=== PATIENT | female | born 1965 | race Caucasian/White ===

== ENCOUNTER → 2019-03-29 13:16 | Outpatient (BNVA) | payer OTHER, SELFPAY | PROVIDERS: Family Provider Family Medicine; Visit Provider Otolaryngology | DX: H93.11 Tinnitus, right ear (principal); H91.93 Unspecified hearing loss, bilateral; R26.89 Other abnormalities of gait and mobility | CPT/HCPCS: 99203; 99214 ==

== ENCOUNTER 2019-05-31 07:35 | Outpatient (CLI) | payer OTHER, SELFPAY ==
--- NOTE | 2019-05-31 19:32 | ONC FU_ITS ---
Dr. Cassidy Patient Follow-Up Note Patient: Rose Mary Freeman Unit #: [id number]: 1965 Dicatated By: Tio Cassidy M.D.Date of Visit:May 31, 2019 Onc Med Follow-up/Prog Note Chief Complaint: Breast cancer. History of Present Illness: This is a 53 year-old woman with multifocal grade 1 invasive ductal carcinoma of the right breast, stage IA (pT1a, pN0, M0), ER/OH positive and HER-2/arianne negative. She has been in good general health. She had initially presented with a palpable lump in her right breast, which appeared to be a simple cyst by imaging. However, excisional biopsy of the right breast on 09/09/2017 did reveal grade 1 invasive ductal carcinoma. The breast prognostic profile showed ER positive at 85% and OH positive at 100%. HER-2/arianne was 2+ by IHC, but negative by FISH. We Ki-67 was favorable at 10%. There was associated DCIS, and there was a positive margin. She then underwent reexcision lumpectomy with axillary sentinel lymph node biopsy on 10/22/2017, which again showed a close margin with DCIS. There was no involvement in 1 sentinel lymph node. With those findings she proceeded with right total mastectomy and prophylactic left mastectomy and bilateral breast reconstruction on 11/23/2017. Pathology on the mastectomy showed at least for foci of residual invasive ductal carcinoma, grade 1, measuring up to 3.5 mm in maximum diameter. 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 There was no malignancy identified in the left breast. She began adjuvant hormonal therapy with tamoxifen in December 2017, as she was premenopausal at that time. During subsequent follow-up she had increased night sweating and hot flashes, and she completely stopped menstruating. She had some depression, which improved with venlafaxine, and she also reported weight gain. Overall, though, she had tolerated the tamoxifen well. I had seen her initially in November 2018. At that point she appeared stable clinically. She continued adjuvant hormonal therapy with tamoxifen 20 mg daily. She is seen for a follow-up visit by Telehealth. She has been feeling pretty good generally. She says her energy has been pretty good. She has normal activity. ECOG score is 0. Her appetite is good. She has gained weight. She is not having fever or night sweats. She has some hot flashes, but not as much. Her main complaint is that she has been having more joint pain, particularly in her knees but also sometimes in her wrists and fingers. She also has been having more leg cramps. She has some aching in her right arm. She does not complain of shortness of breath, cough, or chest pain. She has some heartburn occasionally. She has no other GI or complaints. She has occasional headaches. She does not complain of dizziness. She sometimes has a little bit of numbness/tingling. Medications: LORazepam 1 - 2 Tablet (of 1 mg) Oral PRN, Tamoxifen Citrate 1 Tablet (of 20 mg) Oral daily, Venlafaxine HCl ER 1 Capsule (of 75 mg) Capsule SR 24 HR Oral daily Allergies: Levaquin and Penicillin. Review of Systems: Constitutional - Her energy level is pretty good. She has normal activity. Her appetite is good. She has gained weight. No fever or night sweats. She still has occasional hot flashes but they are improved. ECOG score is 0, ENMT - No sinus congestion/drainage. No mouth sores. No sore throat or difficulty swallowing, Hematologic/Lymphatic - No abnormal bruising or bleeding, Respiratory - No shortness of breath. No cough. No pleuritic pain or hemoptysis, Cardiovascular - No angina pain. No palpitations, Gastrointestinal - No nausea or vomiting. She has occasional heartburn. No diarrhea or constipation. No blood in the stool or black stools, Genitourinary (F) - No dysuria or hematuria. No urinary frequency. No urgency or incontinence, Musculoskeletal - She is having joint pain in her knees, wrists, and fingers. She is having cramping in her legs. She has aching in her right arm on a daily basis, Integumentary - No skin complications, Neurologic - She has occasional headaches. No dizziness. She is having intermittent numbness and tingling in her hands and feet, Psychiatric - Her anxiety/depression has been adequately managed with medication. No insomnia. Physical Examination: Constitutional - She looks good generally, Extremities - There is no swelling in the right arm or other evidence of lymphedema. Impression: 1. Patient with multifocal grade 1 invasive ductal carcinoma of the right breast, stage IA (pT1a, pN0, M0), ER/OH positive and HER-2/arianne negative. She had negative genetic screening. 2. Her treatment included excisional biopsy on 09/09/2017 followed by reexcision lumpectomy/axillary sentinel lymph node biopsy on 10/22/2017 followed by bilateral mastectomy/reconstruction on 11/23/2017. 3. She began adjuvant hormonal therapy with tamoxifen 20 mg daily in December 2017. 4. During follow-up she developed anxiety/depression, that has been adequately managed with venlafaxine. Overall, she has been doing well clinically, though she has started having more symptoms which I suspect are tamoxifen related, mainly joint pain and muscle cramping. Thus far there has been no evidence of recurrence of the breast cancer. Plan: For now she will continue adjuvant hormonal therapy with tamoxifen 20 mg daily. I would like to see her continue treatment through December 2019, at which point she will have at least completed 2 years of treatment. However, as she has very low risk disease, I will have no objection to her stopping the tamoxifen sooner if her joint pain or other symptoms continue to worsen. I will tentatively plan a follow-up visit in 6 months. In the meantime, she will have laboratory studies when she sees Dr. Clark for her yearly follow-up with him. Signed By: Tio Cassidy M.D. <<Signature on File>>
== END 2019-05-31 07:36 | disposition home or self-care (01) ==
LOC: ONCMED 07:35
PROVIDERS: PCP Family Medicine; Visit Provider Internal Medicine Medical Oncology
DX: C50.811 Malignant neoplasm of overlapping sites of right female breast (principal); Z17.0 Estrogen receptor positive status [ER+]; F41.8 Other specified anxiety disorders; Z79.810 Long term (current) use of selective estrogen receptor modulators (SERMs); Z79.899 Other long term (current) drug therapy; Z90.13 Acquired absence of bilateral breasts and nipples
CPT/HCPCS: 99214

== ENCOUNTER 2019-12-21 14:41 | Outpatient (CLI) | payer OTHER, SELFPAY ==
--- NOTE | 2019-12-24 12:48 | ONC FU_ITS ---
Dr. Cassidy Patient Follow-Up Note Patient: Rose Mary Freeman Unit #: [id number]: 1965 Dicatated By: Tio Cassidy M.D.Date of Visit:Dec 21, 2019 Onc Med Follow-up/Prog Note Chief Complaint: Breast cancer. History of Present Illness: This is a 54 year-old woman with multifocal grade 1 invasive ductal carcinoma of the right breast, stage IA (pT1a, pN0, M0), ER/FL positive and HER-2/arianne negative. She has been in good general health. She had initially presented with a palpable lump in her right breast, which appeared to be a simple cyst by imaging. However, excisional biopsy of the right breast on 09/09/2017 did reveal grade 1 invasive ductal carcinoma. The breast prognostic profile showed ER positive at 85% and FL positive at 100%. HER-2/arianne was 2+ by IHC, but negative by FISH. We Ki-67 was favorable at 10%. There was associated DCIS, and there was a positive margin. She then underwent reexcision lumpectomy with axillary sentinel lymph node biopsy on 10/22/2017, which again showed a close margin with DCIS. There was no involvement in 1 sentinel lymph node. With those findings she proceeded with right total mastectomy and prophylactic left mastectomy and bilateral breast reconstruction on 11/23/2017. Pathology on the mastectomy showed at least for foci of residual invasive ductal carcinoma, grade 1, measuring up to 3.5 mm in maximum diameter. 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 There was no malignancy identified in the left breast. She began adjuvant hormonal therapy with tamoxifen in December 2017, as she was premenopausal at that time. During subsequent follow-up she had increased night sweating and hot flashes, and she completely stopped menstruating. She had some depression, which improved with venlafaxine, and she also reported weight gain. Overall, though, she had tolerated the tamoxifen well. I had seen her initially in November 2018. At that point she appeared stable clinically. She continued adjuvant hormonal therapy with tamoxifen 20 mg daily. As of 09/22/2019 she had stopped the tamoxifen due to worsening musculoskeletal pain. She indicates that the pain really did not improve significantly off tamoxifen, so she then tapered off the venlafaxine. She says her joints are a little better now, though she complains that her knees are still stiff and inflamed. She says that ibuprofen does help with that. She complains that her energy is down a little, but she is still working. ECOG score is 0. She has good appetite. She has not had fever or night sweats. She still has some hot flashes, but less since she stopped tamoxifen. She reports having a little bit of lingering, nonproductive cough. She does not complain of shortness of breath or chest pain. She has no GI or complaints. She says that today she has had constant pain going down her right arm, but prior to this it had been okay. She has been having lots of headaches. She sometimes has numbness in her hands. She says she felt a little rough coming off the venlafaxine, that seems to be leveling off now. Medications: LORazepam 1 - 2 Tablet (of 1 mg) Oral PRN Allergies: Levaquin and Penicillin. Review of Systems: Constitutional - Her energy is down a little, but she is working. Appetite is good and weight is stable. No fever or night sweats. She still has some hot flashes, but less since she stopped tamoxifen. ECOG score is 0, ENMT - No sinus congestion/drainage. No mouth sores. No sore throat or difficulty swallowing, Hematologic/Lymphatic - No abnormal bruising or bleeding, Respiratory - No shortness of breath. No cough. No pleuritic pain or hemoptysis, Cardiovascular - No angina pain. No palpitations, Gastrointestinal - No nausea or vomiting. She occasionally has heartburn. No diarrhea or constipation. No blood in the stool or black stools, Genitourinary (F) - No dysuria or hematuria. No urinary frequency. No urgency or incontinence, Musculoskeletal - She continues to have joint pain. It did not improve significantly after she stopped tamoxifen. She had subsequently tapered off venlafaxine, and since then it has improved somewhat. She still complains that her knees are stiff and inflamed, but ibuprofen does help with that, Integumentary - No skin rash, Neurologic - She has been having a lot of headaches. No dizziness. No numbness or tingling. No other focal neurologic symptoms, Psychiatric - She felt a little rough for about 3 weeks when she was coming off the Effexor, but it is leveling off now. No insomnia. Vital Signs: Performed on Dec 21, 2019 14:52 Height - 64.00 in Weight - 239.8 lbs (HIGH) BSA - 2.11 sq.m BMI - 41.16 (HIGH) Temperature - 97.7 F (LOW) Pulse - 75 /min Respiration - 20 /min BP - 134/81 mm(hg) O2 Sat - 96 % Pain - 6 Physical Examination: Constitutional - She looks good generally, Eyes - Sclerae nonicteric. Conjunctivae clear, ENMT - No lesions noted in the oral cavity, Hematologic/Lymphatic - No cervical, clavicular, or axillary adenopathy, Respiratory - Lungs are clear with good air movement bilaterally, Cardiovascular - Heart rhythm is regular. There is no murmur, gallop, or rub noted, Abdomen - Soft. Liver and spleen are not enlarged. There is no abdominal mass or ascites noted and there is no inguinal adenopathy, Extremities - No edema, Neurologic - No focal neurologic deficits noted. Impression: 1. Patient with multifocal grade 1 invasive ductal carcinoma of the right breast, stage IA (pT1a, pN0, M0), ER/FL positive and HER-2/arianne negative. She had negative genetic screening. 2. Her treatment included excisional biopsy on 09/09/2017 followed by reexcision lumpectomy/axillary sentinel lymph node biopsy on 10/22/2017 followed by bilateral mastectomy/reconstruction on 11/23/2017. 3. She began adjuvant hormonal therapy with tamoxifen 20 mg daily in December 2017. 4. During follow-up she developed anxiety/depression, that has been adequately managed with venlafaxine. As of 09/22/2019 she had stopped the tamoxifen due to worsening joint pain. The pain did not really improve significantly. More recently, she had tapered off venlafaxine, and that does seem to have helped somewhat, though she continues to complain that her knees are stiff and inflamed. Overall, she does seem to be feeling better now. Thus far there has been no evidence of recurrence of the breast cancer. Plan: Although her disease was multifocal, she had very small primary tumor, and with stage IA disease her risk of recurrence should be very low, even without treatment. Nonetheless, if she is able, it would be preferable for her to complete 5 years of adjuvant hormonal therapy. As such, I will have her start meloxicam 7.5 mg daily for the joint pain and I will see her back in 1 month. If her joint pain is adequately managed, I will have her try starting back on the tamoxifen. The other option would be to try an aromatase inhibitor, but I think it is very unlikely that she would tolerate it. Signed By: Tio Cassidy M.D. <<Signature on File>>
== END 2019-12-21 14:42 | disposition home or self-care (01) ==
LOC: ONCMED 14:45
PROVIDERS: PCP Family Medicine; Visit Provider Internal Medicine Medical Oncology
DX: C50.811 Malignant neoplasm of overlapping sites of right female breast (principal); Z17.0 Estrogen receptor positive status [ER+]; F41.8 Other specified anxiety disorders; Z90.13 Acquired absence of bilateral breasts and nipples; Z92.23 Personal history of estrogen therapy
CPT/HCPCS: 99214

== ENCOUNTER 2020-02-01 08:20 | Outpatient (CLI) | payer OTHER, SELFPAY ==
--- NOTE | 2020-02-01 12:15 | ONC FU_ITS ---
Dr. Cassidy Patient Follow-Up Note Patient: Rose Mary Freeman Unit #: [id number]: 1965 Dicatated By: Tio Cassidy M.D.Date of Visit:Feb 01, 2020 Onc Med Follow-up/Prog Note Chief Complaint: Breast cancer. History of Present Illness: This is a 54 year-old woman with multifocal grade 1 invasive ductal carcinoma of the right breast, stage IA (pT1a, pN0, M0), ER/OH positive and HER-2/arianne negative. She has been in good general health. She had initially presented with a palpable lump in her right breast, which appeared to be a simple cyst by imaging. However, excisional biopsy of the right breast on 09/09/2017 did reveal grade 1 invasive ductal carcinoma. The breast prognostic profile showed ER positive at 85% and OH positive at 100%. HER-2/arianne was 2+ by IHC, but negative by FISH. We Ki-67 was favorable at 10%. There was associated DCIS, and there was a positive margin. She then underwent reexcision lumpectomy with axillary sentinel lymph node biopsy on 10/22/2017, which again showed a close margin with DCIS. There was no involvement in 1 sentinel lymph node. With those findings she proceeded with right total mastectomy and prophylactic left mastectomy and bilateral breast reconstruction on 11/23/2017. Pathology on the mastectomy showed at least for foci of residual invasive ductal carcinoma, grade 1, measuring up to 3.5 mm in maximum diameter. 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 There was no malignancy identified in the left breast. She began adjuvant hormonal therapy with tamoxifen in December 2017, as she was premenopausal at that time. During subsequent follow-up she had increased night sweating and hot flashes, and she completely stopped menstruating. She had some depression, which improved with venlafaxine, and she also reported weight gain. Overall, though, she had tolerated the tamoxifen well. I had seen her initially in November 2018. At that point she appeared stable clinically. She continued adjuvant hormonal therapy with tamoxifen 20 mg daily. As of 09/22/2019 she had stopped the tamoxifen due to worsening musculoskeletal pain, and she had subsequently stopped venlafaxine. At her follow-up visit on 12/21/2019 she indicated that the pain had not improved significantly. She had noted improvement in her hot flashes. We discussed the possibility of restarting the tamoxifen after a trial of therapy with meloxicam. She is seen for a scheduled follow-up visit. Thus far she has opted not to restart the tamoxifen. She did try the meloxicam for a short time, but without significant improvement in her joint pain. The most significant had been in her knees and wrists. Recently she has had significant pain in her left shoulder, diagnosed as an impingement. She has noticed a little improvement taking naproxen twice a day. She says the hot flashes and sweating have completely stopped now. She still has had no menstrual period since she first started the tamoxifen. Medications: LORazepam 1 - 2 Tablet (of 1 mg) Oral PRN Allergies: Levaquin and Penicillin. Vital Signs: Performed on Feb 01, 2020 08:25 Height - 64.00 in Weight - 236.4 lbs (LOW) BSA - 2.10 sq.m BMI - 40.58 (HIGH) Temperature - 98.6 F Pulse - 71 /min Respiration - 18 /min BP - 143/74 mm(hg) (HIGH) O2 Sat - 96 % Pain - 0 Physical Examination: Constitutional - She looks good generally, Breasts - There is a small erythematous lesion in the upper right chest wall with a tiny palpable nodule within the underlying dermis. The appearance is not suspicious for recurrent breast cancer. Impression: 1. Patient with multifocal grade 1 invasive ductal carcinoma of the right breast, stage IA (pT1a, pN0, M0), ER/OH positive and HER-2/arianne negative. She had negative genetic screening. 2. Her treatment included excisional biopsy on 09/09/2017 followed by reexcision lumpectomy/axillary sentinel lymph node biopsy on 10/22/2017 followed by bilateral mastectomy/reconstruction on 11/23/2017. 3. She began adjuvant hormonal therapy with tamoxifen 20 mg daily in December 2017. 4. During follow-up she developed anxiety/depression, but that was adequately managed with venlafaxine. As of 09/22/2019 she had stopped the tamoxifen due to worsening joint pain and she had subsequently stopped venlafaxine. Since then her joint pain has persisted and thus far she has not attempted to restart the tamoxifen. Plan: She is going to try starting the tamoxifen again, but she is going to wait until February. In the meantime, she is going to continue taking chondroitin sulfate/glucosamine regularly and I suggested that she may also want to try adding turmeric. I will tentatively plan a follow-up visit in 6 months. Signed By: Tio Cassidy M.D. <<Signature on File>>
== END 2020-02-01 08:21 | disposition home or self-care (01) ==
LOC: ONCMED 08:22
PROVIDERS: PCP Family Medicine; Visit Provider Internal Medicine Medical Oncology
DX: C50.811 Malignant neoplasm of overlapping sites of right female breast (principal); M25.50 Pain in unspecified joint; F41.8 Other specified anxiety disorders; Z17.0 Estrogen receptor positive status [ER+]; Z90.13 Acquired absence of bilateral breasts and nipples; Z92.23 Personal history of estrogen therapy
CPT/HCPCS: G0463

== ENCOUNTER 2020-04-29 06:49 | Outpatient (RCR) | payer OTHER, SELFPAY | END 2020-05-22 23:59 | disposition home or self-care (01) | LOC: SPT 06:49 | PROVIDERS: PCP Family Medicine; Referring Provider Emergency Medicine; Visit Provider Emergency Medicine | DX: M75.02 Adhesive capsulitis of left shoulder (principal) | CPT/HCPCS: 97110; 97161 ==

== ENCOUNTER 2020-08-28 14:51 | Outpatient (CLI) | payer OTHER, SELFPAY ==
--- NOTE | 2020-08-29 07:30 | ONC FU_ITS ---
Dr. Cassidy Patient Follow-Up Note Patient: Rose Mary Freeman Unit #: [id number]: 1965 Dicatated By: Tio Cassidy M.D.Date of Visit:Aug 28, 2020 Onc Med Follow-up/Prog Note Chief Complaint: Breast cancer. History of Present Illness: This is a 54 year-old woman with multifocal grade 1 invasive ductal carcinoma of the right breast, stage IA (pT1a, pN0, M0), ER/SC positive and HER-2/arianne negative. She has been in good general health. She had initially presented with a palpable lump in her right breast, which appeared to be a simple cyst by imaging. However, excisional biopsy of the right breast on 09/09/2017 did reveal grade 1 invasive ductal carcinoma. The breast prognostic profile showed ER positive at 85% and SC positive at 100%. HER-2/arianne was 2+ by IHC, but negative by FISH. We Ki-67 was favorable at 10%. There was associated DCIS, and there was a positive margin. She then underwent reexcision lumpectomy with axillary sentinel lymph node biopsy on 10/22/2017, which again showed a close margin with DCIS. There was no involvement in 1 sentinel lymph node. With those findings she proceeded with right total mastectomy and prophylactic left mastectomy and bilateral breast reconstruction on 11/23/2017. Pathology on the mastectomy showed at least for foci of residual invasive ductal carcinoma, grade 1, measuring up to 3.5 mm in maximum diameter. 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 There was no malignancy identified in the left breast. She began adjuvant hormonal therapy with tamoxifen in December 2017, as she was premenopausal at that time. During subsequent follow-up she had increased night sweating and hot flashes, and she completely stopped menstruating. She had some depression, which improved with venlafaxine, and she also reported weight gain. Overall, though, she had tolerated the tamoxifen with acceptable toxicity. I had seen her initially in November 2018. At that point she appeared stable clinically. She continued adjuvant hormonal therapy with tamoxifen 20 mg daily. As of 09/22/2019 she had stopped the tamoxifen due to worsening musculoskeletal pain, and she had subsequently stopped venlafaxine. At her follow-up visit on 12/21/2019 she indicated that the pain had not improved significantly. She had noted improvement in her hot flashes. As of February 2020 she had restarted the tamoxifen at 20 mg daily. She initially felt okay on it, but after 3 months she did opt to restart the venlafaxine due to worsening depression. She was seen for a scheduled visit. She continues to have pretty severe hot flashes on the tamoxifen, but her depression has improved since she restarted the venlafaxine. Her energy is fair. She has normal activity. ECOG score is 0. Appetite is good. She has not had fever. She has a little bit of sinus drainage. She also reports that she intermittently has water dripping from her left IN left nostril. She has not had sore mouth or throat. She has no shortness of breath, cough, or chest pain. She does not complain of nausea. She does have lots and lots of heartburn, but she has been able to manage it adequately with ranitidine. Bowel and bladder function have been okay. She does have some joint pain, for which she has been taking chondroitin sulfate/glucosamine. She also does take the meloxicam, though not on a consistent basis. She reports having lots of muscle cramps in her legs and feet. She had been having a lot of headaches, but those have improved after Botox injections. She occasionally has a little bit of numbness/tingling in her hands or feet. Medications: LORazepam 1 - 2 Tablet (of 1 mg) Oral PRN, Tamoxifen Citrate 1 Tablet (of 20 mg) Oral daily, Venlafaxine HCl ER 1 Capsule (of 75 mg) Capsule SR 24 HR Oral daily Allergies: Levaquin and Penicillin. Vital Signs: Performed on Aug 28, 2020 15:19 Height - 64.00 in Weight - 241.8 lbs (HIGH) BSA - 2.12 sq.m BMI - 41.51 (HIGH) Temperature - 97.0 F (LOW) Pulse - 73 /min Respiration - 18 /min BP - 124/81 mm(hg) O2 Sat - 95 % (LOW) Pain - 0 Fatigue - 0 Physical Examination: Constitutional - She looks good generally, Eyes - Sclerae nonicteric. Conjunctivae clear, ENMT - No lesions noted in the oral cavity, Hematologic/Lymphatic - No cervical or clavicular adenopathy, Respiratory - Lungs are clear with good air movement bilaterally, Cardiovascular - Heart rhythm is regular. There is no murmur, gallop, or rub noted, Breasts - On the superior aspect of the right chest wall/breast reconstruction there is a small, raised, erythematous skin lesion. It has a slightly cystic appearance, not typical for locally recurrent breast cancer. There are no other chest wall lesions noted. There is no axillary adenopathy, Abdomen - Soft. Liver and spleen are not enlarged. There is no abdominal mass or ascites noted and there is no inguinal adenopathy, Extremities - Slight edema, Neurologic - No focal neurologic deficits noted. Problem List: 1. Multifocal grade 1 invasive ductal carcinoma of the right breast, stage IA (pT1a, pN0, M0), ER/SC positive and HER-2/arianne negative. She had negative genetic screening. 2. During follow-up she developed significant musculoskeletal pain. It appears to be most consistent with degenerative arthritis. 3. During follow-up she aso developed anxiety/depression. Problems Addressed with this Encounter and Plan: 1. Patient with multifocal grade 1 invasive ductal carcinoma of the right breast, stage IA (pT1a, pN0, M0), ER/SC positive and HER-2/arianne negative. She had negative genetic screening. Her treatment included excisional biopsy on 09/09/2017 followed by reexcision lumpectomy/axillary sentinel lymph node biopsy on 10/22/2017 followed by bilateral mastectomy/reconstruction on 11/23/2017. She began adjuvant hormonal therapy with tamoxifen 20 mg daily in December 2017. As of 09/22/2019 she had stopped the tamoxifen due to worsening joint pain and she had subsequently stopped venlafaxine. During followup her joint pain has persisted and as of February 2020 she opted to restart tamoxifen. She continues to have side effects with it, most significantly hot flashes and depression, also some fatigue and some fluid retention. At this point her side effects appear to be managed adequately with the possible exception of the hot flashes, which continue to be very significant. For now she is willing to continue the tamoxifen at 20 mg daily. I am going to have her try increasing the venlafaxine to 150 mg daily, and she is to let me know whether she feels better or worse with that adjustment. I will tentatively plan a follow-up visit in 6 months. 2. During follow-up she has developed significant joint pain which appears to be consistent with degenerative arthritis. She has been managing it with chondroitin sulfate/glucosamine and meloxicam. I did suggest that she try taking the meloxicam on a more consistent basis. 3. During follow-up she developed anxiety/depression. It is being managed adequately with venlafaxine. Signed By: Tio Cassidy M.D. <<Signature on File>>
== END 2020-08-28 14:52 | disposition home or self-care (01) ==
LOC: ONCMED 14:55
PROVIDERS: PCP Family Medicine; Visit Provider Internal Medicine Medical Oncology
DX: C50.811 Malignant neoplasm of overlapping sites of right female breast (principal); Z17.0 Estrogen receptor positive status [ER+]; Z90.11 Acquired absence of right breast and nipple; Z90.12 Acquired absence of left breast and nipple; M19.90 Unspecified osteoarthritis, unspecified site; F41.9 Anxiety disorder, unspecified; F32.9 Major depressive disorder, single episode, unspecified; Z79.811 Long term (current) use of aromatase inhibitors; Z79.899 Other long term (current) drug therapy
CPT/HCPCS: 99214

== ENCOUNTER 2021-02-28 15:38 | Outpatient (CLI) | payer OTHER, SELFPAY ==
--- NOTE | 2021-02-28 | XR_ITS ---
WS: [id number] Pelvis and bilateral hips. HISTORY: Bilateral hip pain for 3 months. Normal appearance of the soft tissues and bones of the pelvis. No significant degenerative change. No sclerosis at the SI joints. No osseous destruction. Hips are symmetric bilaterally. No fractures or dislocation. No sclerosis. Dictated By: Jayne Mendoza DO Signed By: Signed Date/Time: DD/ 1617 MTDD XR/XR hip BI m 5V wo/w pel* [id number] IMPRESSION: Normal radiographs of the pelvis and hips.
--- NOTE | 2021-02-28 15:52 | XR_ITS ---
WS: [id number] LEFT KNEE: 3 VIEW(S) TECHNIQUE: AP, oblique(s) and lateral. HISTORY: LT KNEE PAIN COMPARISON: None available. No fracture or dislocation. No joint space narrowing or osteophytes. No joint effusion. No soft tissue abnormality. XR/XR knee LT 3V* [id number] IMPRESSION: Normal LEFT knee.
--- NOTE | 2021-02-28 15:52 | XR_ITS ---
WS: [id number] Pelvis and bilateral hips. HISTORY: Bilateral hip pain for 3 months. Normal appearance of the soft tissues and bones of the pelvis. No significant degenerative change. No sclerosis at the SI joints. No osseous destruction. Hips are symmetric bilaterally. No fractures or dislocation. No sclerosis.
[2021-02-28 17:09] LABS: Estmated Average Glucose 117; Hemoglobin A1C 5.7 % (4.0-6.0)
[2021-02-28 17:23] LABS: Alanine Aminotransferase 21 U/L (0-33); Albumin Level 4.4 g/dL (3.5-5.2); Alkaline Phosphatase 71 IU/L (35-105); Aspartate Amino Transferase 24 U/L (0-32); Blood Urea Nitrogen 10 mg/dL (6-20); C Reactive Protein 3.9 mg/L (0.0-4.9); Calcium 10.4 mg/dL (8.5-10.5); Carbon Dioxide 22 mmol/L (22-29); Chloride 103 mmol/L (98-107); Chol HDL Ratio 3.76 mg/dL (0.0-4.40); Cholesterol 256 mg/dL (0-200); Globulin 2.8 g/dL (1.3-4.6); Glomerular Filtration Rate 86.9 mL/min (90-130); Glucose 83 mg/dL (65-115); HDL Cholesterol 68 mg/dL (60-100); LDL Cholesterol Calculated 164 mg/dL (50-129); LDL HDL Ratio 2.41 RATIO (0.00-3.22); Osmolality Calculated 290 mOsm/kg (285-295); Sodium 141 mmol/L (136-145); Total Bilirubin 0.3 mg/dL (0.15-1.2); Total Protein 7.2 g/dL (6.6-8.7); Triglycerides 120 mg/dL (0-150); Vitamin B12 239 pg/mL (232-1245)
[2021-02-28 17:29] LABS: Anion Gap 20.5 (5-19)
[2021-02-28 17:30] LABS: Potassium 4.5 mmol/L (3.5-5.1)
== END 2021-02-28 15:39 | disposition home or self-care (01) ==
PROVIDERS: PCP Family Medicine; Visit Provider Family Medicine
DX: M25.552 Pain in left hip (principal); M25.551 Pain in right hip; M25.562 Pain in left knee; Z00.00 Encounter for general adult medical examination without abnormal findings; M19.90 Unspecified osteoarthritis, unspecified site; C50.919 Malignant neoplasm of unspecified site of unspecified female breast; G47.00 Insomnia, unspecified; E78.5 Hyperlipidemia, unspecified; E83.52 Hypercalcemia
CPT/HCPCS: 36415; 73521; 73523; 73562; 80053; 80061; 82607; 83036; 84443; 86140

== ENCOUNTER 2021-04-07 14:23 | Outpatient (CLI) | payer OTHER, SELFPAY ==
--- NOTE | 2021-04-09 09:44 | ONC FU_ITS ---
Dr. Cassidy Patient Follow-Up Note Patient: Rose Mary Freeman Unit #: [id number]: 1965 Dicatated By: Tio Cassidy M.D.Date of Visit:Apr 07, 2021 Onc Med Follow-up/Prog Note Chief Complaint: Breast cancer. History of Present Illness: This is a 55 year-old woman with multifocal grade 1 invasive ductal carcinoma of the right breast, stage IA (pT1a, pN0, M0), ER/TX positive and HER-2/arianne negative. She has been in good general health. She had initially presented with a palpable lump in her right breast, which appeared to be a simple cyst by imaging. However, excisional biopsy of the right breast on 09/09/2017 did reveal grade 1 invasive ductal carcinoma. The breast prognostic profile showed ER positive at 85% and TX positive at 100%. HER-2/arianne was 2+ by IHC, but negative by FISH. We Ki-67 was favorable at 10%. There was associated DCIS, and there was a positive margin. She then underwent reexcision lumpectomy with axillary sentinel lymph node biopsy on 10/22/2017, which again showed a close margin with DCIS. There was no involvement in 1 sentinel lymph node. With those findings she proceeded with right total mastectomy and prophylactic left mastectomy and bilateral breast reconstruction on 11/23/2017. Pathology on the mastectomy showed at least for foci of residual invasive ductal carcinoma, grade 1, measuring up to 3.5 mm in maximum diameter. 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 There was no malignancy identified in the left breast. She began adjuvant hormonal therapy with tamoxifen in December 2017, as she was premenopausal at that time. During subsequent follow-up she had increased night sweating and hot flashes, and she completely stopped menstruating. She had some depression, which improved with venlafaxine, and she also reported weight gain. Overall, though, she had tolerated the tamoxifen with acceptable toxicity. I had seen her initially in November 2018. At that point she appeared stable clinically. She continued adjuvant hormonal therapy with tamoxifen 20 mg daily. As of 09/22/2019 she had stopped the tamoxifen due to worsening musculoskeletal pain, and she had subsequently stopped venlafaxine. At her follow-up visit on 12/21/2019 she indicated that the pain had not improved significantly. She had noted improvement in her hot flashes. As of February 2020 she had restarted the tamoxifen at 20 mg daily. She initially felt okay on it, but after 3 months she did opt to restart the venlafaxine due to worsening depression. She has no other medical illnesses. Her other surgical/procedural history includes Caesarean section, tubal ligation, uterine ablation, and cholecystectomy. She is a nonsmoker. She is seen for a followup visit. She says her energy has been kind of low. She has been doing light work, but she does have to stop and rest. ECOG score is 1. She has good appetite. She has not had any fever. She still has bad hot flashes and sweating. She occasionally has sore throat. She does not complain of cough, and she has not been having shortness of breath or chest pain. She occasionally has heartburn. Bowel function remains adequate with her magnesium supplement. She has no complaints. She has been having pain in her left knee, and she is scheduled to have that evaluated next month. She also has been having pain at the top of her right thigh, which I suspect is from the right hip joint. She sometimes wakes up with headache. She has not been dizzy or lightheaded. She sometimes has numbness in her feet. She is taking venlafaxine for depression. Medications: Tamoxifen Citrate 1 Tablet (of 20 mg) Oral daily, Venlafaxine HCl ER 1 Capsule (of 150 mg) Capsule SR 24 HR Oral daily Allergies: Levaquin and Penicillin. Vital Signs: Performed on Apr 07, 2021 15:21 Height - 64.00 in Weight - 249.6 lbs (HIGH) BSA - 2.15 sq.m BMI - 42.84 (HIGH) Temperature - 97.6 F (LOW) Pulse - 86 /min Respiration - 18 /min BP - 147/83 mm(hg) (HIGH) O2 Sat - 95 % (LOW) Pain - 0 Fatigue - 4 Physical Examination: Constitutional - She looks good generally, Eyes - Sclerae nonicteric. Conjunctivae clear, ENMT - No lesions noted in the oral cavity, Hematologic/Lymphatic - No cervical, clavicular, or axillary adenopathy, Respiratory - Lungs are clear with good air movement bilaterally, Cardiovascular - Heart rhythm is regular. There is no murmur, gallop, or rub noted, Abdomen - Mildly distended but soft. Liver and spleen are not enlarged. There is no abdominal mass or ascites noted and there is no inguinal adenopathy, Extremities - No edema, Neurologic - No focal neurologic deficits noted. Lab/Imaging: Her comprehensive metabolic profile from 02/28/2021 showed stable renal function with BUN 10 and creatinine 0.7 mg/dL. The bilirubin and liver enzymes were normal. Her B12 level was in the low normal range at 239 pg/mL. TSH was normal at 2.20 ???IU/mL. Problem List: 1. Multifocal grade 1 invasive ductal carcinoma of the right breast, stage IA (pT1a, pN0, M0), ER/TX positive and HER-2/arianne negative. She had negative genetic screening. 2. Degenerative arthritis. 3. Anxiety/depression. Problems Addressed with this Encounter and Plan: 1. Patient with multifocal grade 1 invasive ductal carcinoma of the right breast, stage IA (pT1a, pN0, M0), ER/TX positive and HER-2/arianne negative. She had negative genetic screening. Her treatment included excisional biopsy on 09/09/2017 followed by reexcision lumpectomy/axillary sentinel lymph node biopsy on 10/22/2017 followed by bilateral mastectomy/reconstruction on 11/23/2017. She began adjuvant hormonal therapy with tamoxifen 20 mg daily in December 2017. As of 09/22/2019 she had stopped the tamoxifen due to worsening joint pain, and she had subsequently stopped venlafaxine. During followup her joint pain persisted, and as of February 2020 she opted to restart tamoxifen. and she had also subsequently restarted venlafaxine. She continues to have some fatigue and some hot flashes, but she has been tolerating her adjuvant hormonal therapy with acceptable toxicity. She continues tamoxifen 20 mg daily. She will be scheduled for a follow-up visit in 6 months. 2. She has joint pain which appears to be consistent with degenerative arthritis. She is scheduled to have evaluation for her left knee. 3. She has had some anxiety/depression. It is being managed adequately with venlafaxine. Signed By: Tio Cassidy M.D. <<Signature on File>>
== END 2021-04-07 14:24 | disposition home or self-care (01) ==
LOC: ONCMED 14:26
PROVIDERS: PCP Family Medicine; Visit Provider Internal Medicine Medical Oncology
DX: C50.811 Malignant neoplasm of overlapping sites of right female breast (principal); Z17.0 Estrogen receptor positive status [ER+]; M17.12 Unilateral primary osteoarthritis, left knee; F41.9 Anxiety disorder, unspecified; F32.9 Major depressive disorder, single episode, unspecified; Z79.811 Long term (current) use of aromatase inhibitors; Z79.899 Other long term (current) drug therapy
CPT/HCPCS: 99214

== ENCOUNTER 2021-10-07 13:55 | Oncology outpatient (recurring) (ONCR) | payer OTHER, SELFPAY ==
[2021-10-07 15:14] LABS: Basophils # 0.1 10^3/uL (0.0-0.1); Basophils % 0.6 %; Eosinophils # 0.1 10^3/uL (0.0-0.8); Eosinophils % 0.8 %; Hemoglobin 14.5 g/dL (11.5-15.3); Lymphocytes # 2.4 10^3/uL (0.8-4.8); Lymphocytes % 27.6 %; Mean Corpuscular Hemoglobin 31.6 pg (28.0-34.0); Mean Corpuscular Volume 95.9 fl (81-99); Mean Platelet Volume 10.3 fL (7.4-10.4); Monocytes # 0.4 10^3/uL (0.2-0.9); Monocytes % 4.8 %; Neutrophils # 5.69 10^3/uL (1.8-7.7); Neutrophils % 65.9 %; Nucleated Red Blood Cells % 0 %; Platelet Count 225 10^3/cmm (130-400); Red Blood Count 4.59 10^6/uL (4.1-5.3); Red Cell Distribution Width 12.2 % (12.1-15.1); White Blood Count 8.6 10^3/uL (4.0-10.0)
[2021-10-07 16:06] LABS: Alanine Aminotransferase 17 U/L (0-33); Albumin Level 4.4 g/dL (3.5-5.2); Alkaline Phosphatase 69 U/L (35-105); Anion Gap 16.8 (5-19); Aspartate Amino Transferase 17 U/L (0-32); Blood Urea Nitrogen 16 mg/dL (6-20); Calcium 9.5 mg/dL (8.5-10.5); Carbon Dioxide 25 mmol/L (22-29); Chloride 103 mmol/L (98-107); Follicle Stimulating Hormone 39.2 mIU/mL; Globulin 2.6 g/dL (1.3-4.6); Glomerular Filtration Rate 74.5 mL/min (90-130); Glucose 83 mg/dL (65-115); Iron 61 ug/dL (37-145); Osmolality Calculated 292 mOsm/kg (285-295); Percent Saturation 22.7 % (20-50); Potassium 3.8 mmol/L (3.5-5.1); Sodium 141 mmol/L (136-145); Thyroid Stimulating Hormone 3.11 uIU/mL (0.27-4.20); Total Bilirubin 0.3 mg/dL (0.15-1.2); Total Iron Binding Capacity 268 mcg/dl; Unsaturated Iron Binding 207 ug/dL (112-347); Vitamin B12 221 pg/mL (232-1245)
[2021-10-07 17:33] LABS: Magnesium Level (OB Only) 2.4 mg/dL (5.0-7.5)
[2021-10-11 01:27] LABS: Methylmalonic Acid 230 nmol/L (87-318)
== END 2021-10-22 23:59 | disposition home or self-care (01) ==
PROVIDERS: PCP Family Medicine; Visit Provider Internal Medicine Medical Oncology
DX: C50.811 Malignant neoplasm of overlapping sites of right female breast (principal); E53.8 Deficiency of other specified B group vitamins; R53.83 Other fatigue
CPT/HCPCS: 80053; 82607; 82670; 83001; 83002; 83540; 83550; 83735; 83921; 84443; 85025

== ENCOUNTER 2022-06-18 16:03 | Oncology outpatient (recurring) (ONCR) | payer OTHER, SELFPAY | END 2022-06-21 23:59 | disposition home or self-care (01) | PROVIDERS: PCP Family Medicine; Visit Provider Nurse Practitioner Family | DX: Z08 Encounter for follow-up examination after completed treatment for malignant neoplasm (principal); Z85.3 Personal history of malignant neoplasm of breast; Z90.13 Acquired absence of bilateral breasts and nipples; M25.59 Pain in other specified joint; Z92.23 Personal history of estrogen therapy ==